=== PATIENT | female | born 1985 | race Native Hawaiian/Other Pacific Islander ===

== ENCOUNTER 2017-09-20 15:35 | Emergency (ER) | payer OTHER ==
[~2017-09-20] VITALS: Ht 149.9 cm; Wt 57.2 kg
[2017-09-20 15:40] VITALS: TEMP 99.6
[2017-09-20 17:40] VITALS: BP 143/87
== END 2017-09-20 17:42 | disposition home or self-care (01) ==
LOC: ED 15:35
DX: M79.645 Pain in left finger(s) (principal)
CPT/HCPCS: 99282

== ENCOUNTER 2018-02-13 19:07 | Emergency (ER) | payer OTHER ==
[~2018-02-13] VITALS: Ht 149.9 cm; Wt 58.1 kg
[2018-02-13] MEDS ORDERED: CELEXA20 MG PO (19:26)
[2018-02-13] MEDS ORDERED: CARB200T42 PO (19:26)
[2018-02-13 20:14] LABS: PLATELET COUNT 196 K/uL (152-353)
[2018-02-13 21:42] VITALS: BP 122/81; TEMP 98.9
== END 2018-02-13 21:48 | disposition home or self-care (01) ==
LOC: ED 19:07
DX: J20.8 Acute bronchitis due to other specified organisms (principal); L65.8 Other specified nonscarring hair loss
CPT/HCPCS: 36415; 84443; 85027; 99283

== ENCOUNTER 2020-10-24 01:45 | Emergency (ER) | payer OTHER ==
[~2020-10-24] VITALS: Ht 149.9 cm; Wt 54.4 kg
[~2020-10-24 01:45] MED LIST: CARB200T42 PO; CELEXA20 MG PO
[2020-10-24 02:02] VITALS: TEMP 97.7
[2020-10-24 02:33] LABS: PLATELET COUNT 275 K/uL (152-353)
[2020-10-24 02:58] VITALS: BP 105/66
== END 2020-10-24 03:10 | disposition home or self-care (01) ==
LOC: ED 01:45
PROVIDERS: Emergency Medicine Emergency Medical Services
DX: F10.129 Alcohol abuse with intoxication, unspecified (principal); Y90.8 Blood alcohol level of 240 mg/100 ml or more; U07.1 COVID-19
CPT/HCPCS: 36415; 80307; 80320; 81000; 81025; 85027; 87635; 96360; 96365; 96374; 96375; 99284; J2060; U0003